=== PATIENT | female | born 1990 | race Caucasian/White ===

== ENCOUNTER 2019-03-13 23:08 | Observation (INO) | payer BC, OTHER ==
[2019-03-13 23:29] LABS: Appearance CLOUDY (CLEAR); Bacteria MODERATE /HPF (NEGATIVE); Bilirubin NEGATIVE (NEGATIVE); Blood MODERATE Ery/ul (0-5); Epithelial Cells FEW /HPF (FEW); Glucose NEGATIVE (NEGATIVE); Ketones SMALL (NEGATIVE); Leukocyte Esterase LARGE (NEGATIVE); Mucus MODERATE /HPF (NEGATIVE); Nitrite NEGATIVE (NEGATIVE); Non-Squamous Epithelial Cells RARE /HPF (FEW); Protein,Urine Dip 100 (Negative); RBC 51-100 /HPF (0-2); Specific Gravity 1.008 (1.005-1.025); Urobilinogen NEGATIVE mg/dL (0-1); WBC >100 /HPF (0-5)
[2019-03-13 23:37] LABS: Amphetamine,Urine NEGATIVE (NEGATIVE); Barbiturate,Urine NEGATIVE (NEGATIVE); Benzodiazepine,Urine NEGATIVE (NEGATIVE); Cocaine,Urine NEGATIVE (NEGATIVE); Methadone,Urine NEGATIVE (NEGATIVE); Opiate,Urine NEGATIVE (NEGATIVE); PCP,Urine NEGATIVE (NEGATIVE); THC,Urine NEGATIVE (NEGATIVE)
[2019-03-14 01:17] VITALS: BP 104/67; PULSE 86
== END 2019-03-14 00:45 | disposition home or self-care (01) ==
LOC: OB 23:08
PROVIDERS: ADMIT Family Medicine; ATTEND Family Medicine
DX: Z34.83 Encounter for supervision of other normal pregnancy, third trimester (principal)
CPT/HCPCS: 80307; 81001; 87077; 87086; 87186; G0378

== ENCOUNTER 2019-04-20 16:21 | Observation (INO) | payer BC, OTHER ==
[2019-04-20 16:46] LABS: Appearance SLIGHTLY CLOUDY (CLEAR); Bacteria RARE /HPF (NEGATIVE); Bilirubin NEGATIVE (NEGATIVE); Blood NEGATIVE Ery/ul (0-5); Epithelial Cells RARE /HPF (FEW); Glucose NEGATIVE (NEGATIVE); Ketones NEGATIVE (NEGATIVE); Leukocyte Esterase TRACE (NEGATIVE); Mucus SLIGHT /HPF (NEGATIVE); Nitrite NEGATIVE (NEGATIVE); Protein,Urine Dip 30 (Negative); Specific Gravity 1.028 (1.005-1.025); Urobilinogen 4 mg/dL (0-1)
[2019-04-20 17:02] VITALS: BP 125/76
[2019-04-20 17:53] VITALS: PULSE 103; O2SAT 99
== END 2019-04-20 18:20 | disposition home or self-care (01) ==
LOC: OB 16:21
PROVIDERS: ADMIT Family Medicine; ATTEND Family Medicine
DX: Z34.83 Encounter for supervision of other normal pregnancy, third trimester (principal)
CPT/HCPCS: 81001; G0378

== ENCOUNTER 2019-04-24 22:04 | Observation (INO) | payer BC, OTHER ==
[2019-04-24 22:45] VITALS: O2SAT 98
[2019-04-24 23:31] VITALS: BP 118/77; PULSE 81
== END 2019-04-24 23:25 | disposition home or self-care (01) ==
LOC: OB 22:04
PROVIDERS: ADMIT Family Medicine; ATTEND Family Medicine
DX: Z34.83 Encounter for supervision of other normal pregnancy, third trimester (principal)
CPT/HCPCS: 83986; G0378

== ENCOUNTER 2019-05-03 17:12 | Observation (INO) | payer BC, OTHER ==
[2019-05-03 19:05] VITALS: PULSE 85
[2019-05-03 20:09] LABS: Appearance CLEAR (CLEAR); Bacteria RARE /HPF (NEGATIVE); Bilirubin NEGATIVE (NEGATIVE); Blood NEGATIVE Ery/ul (0-5); Epithelial Cells RARE /HPF (FEW); Glucose NEGATIVE (NEGATIVE); Ketones NEGATIVE (NEGATIVE); Leukocyte Esterase TRACE (NEGATIVE); Nitrite NEGATIVE (NEGATIVE); Protein,Urine Dip NEGATIVE (Negative); Specific Gravity 1.011 (1.005-1.025); Urobilinogen NEGATIVE mg/dL (0-1)
[2019-05-03 20:17] VITALS: BP 121/84
== END 2019-05-03 20:55 | disposition home or self-care (01) ==
LOC: UNDOADMOB 17:12 → OB 17:12 → UNDODISOB 22:51
PROVIDERS: ADMIT Family Medicine; ATTEND Family Medicine
DX: Z34.83 Encounter for supervision of other normal pregnancy, third trimester (principal)
CPT/HCPCS: 81001; G0378

== ENCOUNTER 2019-05-19 03:20 | Inpatient (IN) | payer BC, OTHER ==
[2019-05-19] MEDS ORDERED: BRETHINE 1 MG/ML SQ PRN (04:05)
[2019-05-19] MEDS ORDERED: XYLOCAINE 1% HCL 20 ML MDV IJ PRN (04:24)
[2019-05-19] MEDS ORDERED: Zofran 4 MG/2 ML VIAL IV PRN (04:24)
[2019-05-19] MEDS ORDERED: TYLENOL EXTRA STRENGTH 500 MG PO PRN (04:24)
[2019-05-19 05:33] LABS: BASOPHIL % 0.4 % (0.0-0.4); Basophil (Absolute #) 0.03 (0-0.4); Eosinophil % 1.1 % (0.00-5.0); Eosinophil (Absolute #) 0.08 (0-0.5); Granulocyte Absolute (ANC) 5.05 (1.4-6.9); Granulocytes % 70.9 % (36.0-66.0); Hematocrit 34.4 % (35-47); Lymphocyte (Absolute #) 1.47 (1.0-4.6); Lymphocytes % 20.6 % (24.0-44.0); Mean Cell Volume 78.9 fl (78-100); Mean Corpuscular Hemoglobin 25.2 pg (26-32); Mean Platelet Volume 13.1 fl (6-9.5); Platelet Count 197 K/mm3 (150-450); Red Blood Count 4.36 M/mm3 (4.1-5.4); Red Cell Distribution Width 13.4 % (11.5-14.0); White Blood Count 7.1 K/mm3 (4.0-10.5)
[2019-05-19 05:34] LABS: Appearance CLEAR (CLEAR); Bilirubin NEGATIVE (NEGATIVE); Blood NEGATIVE Ery/ul (0-5); Epithelial Cells RARE /HPF (FEW); Glucose NEGATIVE (NEGATIVE); Ketones NEGATIVE (NEGATIVE); Leukocyte Esterase NEGATIVE (NEGATIVE); Mucus SLIGHT /HPF (NEGATIVE); Nitrite NEGATIVE (NEGATIVE); Protein,Urine Dip NEGATIVE (Negative); Specific Gravity 1.009 (1.005-1.025); Urobilinogen NEGATIVE mg/dL (0-1)
[2019-05-19] MEDS ORDERED: PITOCIN 30 UNITS/ LR 500 ML 500 ML IV SCH (06:00)
[2019-05-19] MEDS: Lactated Ringers 1,000 ML IV SCH ×3 (06:03→15:12)
[2019-05-19 06:50] LABS: Amphetamine,Urine NEGATIVE (NEGATIVE); Barbiturate,Urine NEGATIVE (NEGATIVE); Benzodiazepine,Urine NEGATIVE (NEGATIVE); Cocaine,Urine NEGATIVE (NEGATIVE); Methadone,Urine NEGATIVE (NEGATIVE); Opiate,Urine NEGATIVE (NEGATIVE); PCP,Urine NEGATIVE (NEGATIVE); THC,Urine NEGATIVE (NEGATIVE)
[2019-05-19] MEDS ORDERED: Ephedrine Sulfate 50 MG/ML IV PRN (11:59)
[2019-05-19] MEDS ORDERED: Lactated Ringers 1,000 ML IV ONE (11:59)
[2019-05-19] MEDS ORDERED: OB EPIDURAL NAROPIN/SUFENTANIL IN NACL EPIDURAL PRN (11:59)
[2019-05-19] MEDS ORDERED: STADOL 2 MG IV ONE (12:46)
[2019-05-19] MEDS ORDERED: STADOL 2 MG ONE (12:50)
[2019-05-19] MEDS ORDERED: XYLOCAINE 2%/Epi 1:200000 20ML VIAL MPF ONE (14:24)
[2019-05-19] MEDS ORDERED: Ambien 10 MG PO PRN (17:03)
[2019-05-19] MEDS ORDERED: Mylicon 80MG PO PRN (17:03)
[2019-05-19] MEDS ORDERED: LANSINOH 40 GM TOP PRN (17:03)
[2019-05-19] MEDS ORDERED: TUCKS TP PRN (17:03)
[2019-05-19] MEDS ORDERED: Restoril 15 MG PO PRN (17:03)
[2019-05-19] MEDS ORDERED: Dulcolax 10 MG SUPP PR PRN (17:03)
[2019-05-19] MEDS ORDERED: Dermoplast Spray TP PRN (17:03)
[2019-05-19] MEDS ORDERED: Anucort-HC SUPPOSITORY PR PRN (17:03)
[2019-05-19] MEDS ORDERED: CORTISONE 1% CREAM TP PRN (17:03)
[2019-05-19] MEDS ORDERED: XYLOCAINE 2%/Epi 1:200000 20ML VIAL MPF IJ SCH (20:00)
[2019-05-19] MEDS: SYNTHROID 75 MCG PO SCH (21:33)
[2019-05-19] MEDS: SYNTHROID 100 MCG PO SCH (21:33)
[2019-05-19] MEDS: Colace 100 MG PO SCH (21:39)
[2019-05-19] MEDS: THERAGRAN MULTIVITAMIN PO SCH (21:39)
[2019-05-20] MEDS: MOTRIN 400 MG PO PRN (00:04)
[2019-05-20] MEDS: NORCO 5/325 MG PO PRN ×6 (01:28→22:46)
[2019-05-20 06:18] LABS: BASOPHIL % 0.1 % (0.0-0.4); Basophil (Absolute #) 0.01 (0-0.4); Eosinophil % 1.4 % (0.00-5.0); Granulocyte Absolute (ANC) 5.34 (1.4-6.9); Granulocytes % 72.3 % (36.0-66.0); Hematocrit 32.9 % (35-47); Hemoglobin 10.4 gm/dl (12.0-16.0); Lymphocyte (Absolute #) 1.45 (1.0-4.6); Lymphocytes % 19.6 % (24.0-44.0); Mean Cell Volume 79.9 fl (78-100); Mean Corpuscular Hemoglobin 25.2 pg (26-32); Mean Corpuscular Hgb Concent. 31.6 g/dl (32-36); Mean Platelet Volume 13.7 fl (6-9.5); Monocyte (Absolute #) 0.49 (0.0-1.3); Monocytes % 6.6 % (0.0-12.0); Platelet Count 185 K/mm3 (150-450); Red Blood Count 4.12 M/mm3 (4.1-5.4); Red Cell Distribution Width 13.5 % (11.5-14.0); White Blood Count 7.4 K/mm3 (4.0-10.5)
[2019-05-20] MEDS ORDERED: NON-FORMULARY ITEM (Prenatal Vits W-Ca,Fe,Fa(<1mg) [Prenatal] 1 EACH) PO SCH (10:00)
[2019-05-20] MEDS ORDERED: LEVOTHYROXINE SODIUM 275 MCG PO SCH (10:00)
[2019-05-20] MEDS: THERAGRAN MULTIVITAMIN PO SCH (10:44)
[2019-05-20] MEDS: FERREX 150 PO SCH (10:45)
[2019-05-20] MEDS: Colace 100 MG PO SCH ×2 (10:45→20:57)
[2019-05-20] MEDS: SYNTHROID 75 MCG PO SCH (10:46)
[2019-05-20] MEDS: SYNTHROID 100 MCG PO SCH (10:46)
[2019-05-21] MEDS: NORCO 5/325 MG PO PRN ×2 (03:03→06:56)
[2019-05-21] MEDS: Colace 100 MG PO SCH (09:39)
[2019-05-21] MEDS: SYNTHROID 100 MCG PO SCH (09:39)
[2019-05-21] MEDS: SYNTHROID 75 MCG PO SCH (09:39)
[2019-05-21] MEDS: THERAGRAN MULTIVITAMIN PO SCH (09:39)
[2019-05-21] MEDS: FERREX 150 PO SCH (09:39)
[2019-05-21] MEDS: MOTRIN 400 MG PO PRN (13:05)
--- NOTE | 2019-05-21 13:26 | PCM.DS ---
Discharge Summary Date of Admission: 05/19/19 08:46 Date of Discharge: 05/21/2019 Admitting Physician: DEBORAH LUJAN Consults: Consults on Case 05/19/19 17:03 Notify Physician ROUTINE Primary Care Provider: DEBORAH LUJAN Allergies Allergies cefprozil [From Cefzil] Allergy (Severe, Verified 05/19/19 05:36) Swelling of Face coffee (Coffea arabica) [coffee] Allergy (Intermediate, Verified 05/19/19 05:37) [facility] Summary - Hospital Course Hospital Course: 28 yr old at 39 and 4/7 weeks ega that was admitted for elective induction of labor. Patient's PMHx includes hypothyroidism. Patient is s/p day two of viable male infant. Perineum intact. Loose nuchal cord x1 easily reduced. was bulb suctioned. Cord clamped then cut by FOB. Placenta delivered by active management. Cord blood collective and sent to lab. Uterus contracted down and fundus firm. EBL 100 ml. No complications noted. Patient has continued to do well during hospital course. She has had stable VS. She plans to bottle feed due to reported family hx of lactose intolerance. - Vitals & Intake/Output Vital Signs: Vital Signs Temperature 98.2 F 05/21/19 08:00 Pulse Rate 77 05/21/19 08:00 Respiratory Rate 18 05/21/19 08:00 Blood Pressure 109/70 05/21/19 08:00 O2 Sat by Pulse Oximetry Intake & Output: Intake & Output 05/19/19 05/20/19 05/21/19 05/22/19 11:59 11:59 11:59 11:59 Intake Total 1000 500 Output Total 350 5 Balance -350 995 500 Weight 104.326 kg - Lab Result Diagrams: 05/20/19 05:15 Discharge Exam General Appearance: no apparent distress Neurologic Exam: alert, oriented x 3, cooperative, normal mood/affect Eye Exam: eyes nml inspection Ears, Nose, Throat Exam: moist mucous membranes Neck Exam: normal inspection Respiratory Exam: normal breath sounds Cardiovascular Exam: regular rate/rhythm, normal heart sounds Gastrointestinal/Abdomen Exam: soft, normal bowel sounds Pelvic Exam: other (Uterine fundus below level of umbilicus appropriately tender ) Back Exam: normal inspection, other (small bruise at epidural site tender to palpation) Extremity Exam: pedal edema (+2) Skin Exam: normal color, warm, dry Final Diagnosis/Problem List - Final Discharge Diagnosis/Problem (1) Vaginal delivery Current Visit: No Status: Acute Assessment & Plan: Patient is doing well. VS stable. Plan for discharge today - Discharge Discharge Date: 05/21/19 Disposition: Home, Self-Care Condition: Stable Prescriptions: No Action Vits W-Ca,Fe,FA(<1Mg) [] 1 each PO DAILY Levothyroxine Sodium [Synthroid] 275 mcg PO DAILY Ergocalciferol (Vitamin D2) [Vitamin D2] 50,000 unit PO Q7D Follow up with: DEBORAH LUJAN MD [Primary Care Provider] - 1 Week
[2019-05-21 15:19] VITALS: BP 112/64; PULSE 81
== END 2019-05-21 16:30 | disposition home or self-care (01) | DRG 807 ==
LOC: OB 04:49 → OBSVTOIN 08:46
PROVIDERS: ADMIT Family Medicine; ATTEND Family Medicine
PROC: 10E0XZZ Delivery of Products of Conception, External Approach (ICD-10-PCS; principal; 2019-05-19)
DX: O80 Encounter for full-term uncomplicated delivery (principal); Z37.0 Single live birth; Z3A.39 39 weeks gestation of pregnancy
CPT/HCPCS: 36415; 80307; 81001; 85025; 87340; G0378; J0595; J2590; J2795; A9270-GY

== ENCOUNTER 2020-12-18 05:48 | Day surgery (SDC) | payer BC ==
[2020-12-18] MEDS ORDERED: Lactated Ringers 1,000 ML IV SCH (06:30)
[2020-12-18 07:14] LABS: Hematocrit 39.4 % (35-47); Hemoglobin 12.5 gm/dl (12.0-16.0)
[2020-12-18 07:49] LABS: ABO TYPING B; Antibody Screen NEGATIVE (NEGATIVE); RH TYPING POSITIVE
[2020-12-18] MEDS ORDERED: Zofran 4 MG/2 ML VIAL ONE (07:52)
[2020-12-18] MEDS ORDERED: Xylocaine-Mpf 2% 5 Ml Vial ONE (07:52)
[2020-12-18] MEDS ORDERED: Decadron 4 MG INJ ONE (07:52)
[2020-12-18] MEDS ORDERED: DIPRIVAN 200 MG/20 ML IV ONE (07:52)
[2020-12-18] MEDS ORDERED: SUBLIMAZE 100 MCG/2 ML ONE ×2 (07:53→08:43)
[2020-12-18] MEDS ORDERED: Lactated Ringers 1,000 ML IV ONE (08:10)
--- NOTE | 2020-12-18 08:51 | PCM.DCORD ---
- Discharge Disposition: Home, Self-Care Condition: Stable Prescriptions: New Hydrocodone/Acetaminophen [Hydrocodone-Acetamin 5-325 mg ] 1 tab PO Q6HPRN PRN 5 Days #20 tablet MDD 4 PRN Reason: Pain Cephalexin Mh 500 mg [Keflex 500 mg] 500 mg PO QID #28 capsule Continue Vits W-Ca,Fe,FA(<1Mg) [] 1 each PO DAILY Levothyroxine Sodium [Synthroid] 225 mcg PO DAILY Ergocalciferol (Vitamin D2) [Vitamin D2] 50,000 unit PO Q7D Follow up with: DEBORAH LUJAN MD [Primary Care Provider] - 1 Week
--- NOTE | 2020-12-18 09:13 | OP ---
SURGERY DATE/TIME: 12/18/2020 0755 PREOPERATIVE DIAGNOSIS: Missed . POSTOPERATIVE DIAGNOSIS: Missed . PROCEDURE: Suction dilatation and curettage. SURGEON: Graham Baker M.D. ANESTHESIA: General by Jorge A Pan CRNA. ESTIMATED BLOOD LOSS: Approximately 100 cc. SPECIMEN: Products of conception. DESCRIPTION OF PROCEDURE: After informed, written consent was obtained, the patient was taken to the operating room. She was prepped and draped in dorsal lithotomy position after she underwent general anesthesia. A weighted speculum was inserted into the vagina vault and the anterior free edge of the cervix was grasped with a single tooth tenaculum. Sound was used to gauge sound depth and then Hegar dilators were used to approximate dilation to receive a 7 Pashto suction catheter. A 7 Pashto suction catheter was used to evacuate the uterine cavity. There was munguia tissue consistent with products of conception visualized during suction with some bleeding consistent with completion of the procedure. Several passes were used in all four quadrants and felt as though the endometrial gritty texture was appreciable following removal of the products of conception in all four quadrants with minimal bleeding following evacuation of the uterine cavity. The patient remained stable throughout the procedure. The single tooth tenaculum was removed. Sponge stick was used to clean the vaginal vault. Minimal bleeding was present following the procedure. The weighted speculum was removed. The patient was transferred to the recovery in good condition. She was advised to follow up in the office in one week and I also advised the patient and her mother before and after the procedure to call if any fever, severe pelvic pain, heavy bleeding with clot passage or other complaints or concerns prior to the one week stefano.
[2020-12-18 09:28] VITALS: BP 126/71; PULSE 68; O2SAT 99
== END 2020-12-18 09:45 | disposition home or self-care (01) ==
LOC: SDC 05:48
PROVIDERS: ATTEND Family Medicine
DX: O02.1 Missed abortion (principal)
CPT/HCPCS: 36415; 85014; 85018; 86850; 86900; 86901; 88305; J1100; J2405; J2704; J3010

== ENCOUNTER 2023-02-24 00:44 | Observation (INO) | payer BC ==
[2023-02-24 01:27] LABS: Appearance Clear (Clear); Bacteria None Seen /HPF (None Seen); Bilirubin Negative (Negative); Blood Negative (Negative); Epithelial Cells None Seen /HPF (None Seen); Glucose, Urine Negative (Negative); Hyaline Casts NONE SEEN /LPF (0-2); Ketones Negative (Negative); Leukocyte Esterase Negative (Negative); Nitrite Negative (Negative); Ph 6.5 (4.6-8.0); Protein,Urine Dip Negative (Negative); RBC 0-2 /HPF (0-5); Specific Gravity <=1.005 (1.005-1.030); WBC 0-2 /HPF (0-5)
[2023-02-24 01:28] LABS: ADD URINE CULTURE? NO (NO)
[2023-02-24 01:38] LABS: Amphetamine,Urine NEGATIVE (NEGATIVE); Barbiturate,Urine NEGATIVE (NEGATIVE); Benzodiazepine,Urine NEGATIVE (NEGATIVE); Cocaine,Urine NEGATIVE (NEGATIVE); Methadone,Urine NEGATIVE (NEGATIVE); Opiate,Urine NEGATIVE (NEGATIVE); PCP,Urine NEGATIVE (NEGATIVE); THC,Urine NEGATIVE (NEGATIVE)
[2023-02-24 01:44] VITALS: O2SAT 98
[2023-02-24 02:10] VITALS: BP 107/61; PULSE 82
== END 2023-02-24 02:18 | disposition home or self-care (01) ==
LOC: OB 00:44
PROVIDERS: ADMIT Family Medicine; ATTEND Family Medicine
DX: Z34.83 Encounter for supervision of other normal pregnancy, third trimester (principal); Z3A.34 34 weeks gestation of pregnancy
CPT/HCPCS: 80307; 81001; G0378; G0379

== ENCOUNTER 2023-03-15 13:11 | Inpatient (IN) | payer BC ==
[2023-03-15 14:31] LABS: Appearance CLEAR (CLEAR); Bilirubin SMALL (NEGATIVE); Glucose NEGATIVE (NEGATIVE); Ketones NEGATIVE (NEGATIVE); Nitrite NEGATIVE (NEGATIVE); Ph 7.5 (5-6); Protein,Urine Dip 30 (Negative); RBC NEGATIVE Ery/ul (0-5); Urobilinogen 1 mg/dL (0-1)
[2023-03-15] MEDS ORDERED: Ephedrine Sulfate 50 MG/ML IV PRN (15:15)
[2023-03-15] MEDS ORDERED: Lactated Ringers 1,000 ML IV ONE (15:15)
[2023-03-15] MEDS ORDERED: FENTANYL 2 MCG-BUPIV 0.125%-NS 250 ML Epidur 250 ML EPIDURAL SCH (15:15)
[2023-03-15] MEDS ORDERED: BRETHINE 1 MG/ML SQ PRN (15:17)
[2023-03-15] MEDS ORDERED: Dermoplast Spray TP PRN (15:17)
[2023-03-15] MEDS ORDERED: TUCKS TP PRN (15:17)
[2023-03-15] MEDS ORDERED: XYLOCAINE 1% HCL 20 ML MDV IJ PRN (15:17)
[2023-03-15] MEDS ORDERED: STADOL 2 MG IV PRN (15:17)
[2023-03-15] MEDS ORDERED: LANSINOH 40 GM TOP PRN (15:17)
[2023-03-15] MEDS ORDERED: Zofran 4 MG/2 ML VIAL IV PRN (15:17)
[2023-03-15] MEDS ORDERED: Nubain 10 MG/ML IV PRN (15:17)
[2023-03-15 16:15] LABS: Hematocrit 30.2 % (35-47); Hemoglobin 9.2 g/dL (12.0-16.0); Mean Cell Volume 76.3 fL (78-100); Mean Corpuscular Hemoglobin 23.2 pg (26-32); Mean Corpuscular Hgb Concent. 30.5 g/dL (32-36); Mean Platelet Volume 11.3 fL (7.5-11.0); Platelet Count 179 x10^3/uL (150-450); Red Blood Count 3.96 x10^6/uL (4.1-5.4); Red Cell Distribution Width 14.4 % (11.5-14.0); White Blood Count 4.8 x10^3/uL (4.0-10.5)
[2023-03-15] MEDS: PITOCIN 30 UNITS/ LR 500 ML 30 UNITS/500 ML PLAST..BAG IV SCH (16:27)
[2023-03-15] MEDS: Lactated Ringers 1,000 ML IV SCH (16:28)
[2023-03-15 16:31] LABS: Amphetamine,Urine NEGATIVE (NEGATIVE); Barbiturate,Urine NEGATIVE (NEGATIVE); Benzodiazepine,Urine NEGATIVE (NEGATIVE); Cocaine,Urine NEGATIVE (NEGATIVE); Methadone,Urine NEGATIVE (NEGATIVE); Opiate,Urine NEGATIVE (NEGATIVE); PCP,Urine NEGATIVE (NEGATIVE); THC,Urine NEGATIVE (NEGATIVE)
[2023-03-15 17:00] LABS: ABO TYPING B; Antibody Screen NEGATIVE (NEGATIVE); RH TYPING POSITIVE
[2023-03-16] MEDS: Lactated Ringers 1,000 ML IV SCH ×2 (00:33→09:54)
[2023-03-16] MEDS: PITOCIN 30 UNITS/ LR 500 ML 30 UNITS/500 ML PLAST..BAG IV SCH (09:36)
[2023-03-16] MEDS: FERREX 150 PO SCH (11:09)
[2023-03-16] MEDS: MOTRIN 400 MG PO PRN (16:36)
[2023-03-16] MEDS ORDERED: Adacel Vial IM ONE (18:00)
[2023-03-16] MEDS ORDERED: Pepcid 20 MG PO ONE (20:30)
[2023-03-16] MEDS: TYLENOL EXTRA STRENGTH 500 MG PO PRN (22:33)
[2023-03-16] MEDS: Docusate Sodium 100 MG PO SCH (23:20)
[2023-03-17] MEDS: MOTRIN 400 MG PO PRN ×4 (01:08→21:40)
[2023-03-17] MEDS: TYLENOL EXTRA STRENGTH 500 MG PO PRN ×3 (04:02→20:00)
[2023-03-17 05:54] LABS: Hematocrit 26.6 % (35-47); Hemoglobin 8.3 g/dL (12.0-16.0); Mean Cell Volume 75.8 fL (78-100); Mean Corpuscular Hemoglobin 23.6 pg (26-32); Mean Corpuscular Hgb Concent. 31.2 g/dL (32-36); Mean Platelet Volume 11.5 fL (7.5-11.0); Platelet Count 191 x10^3/uL (150-450); Red Blood Count 3.51 x10^6/uL (4.1-5.4); Red Cell Distribution Width 14.7 % (11.5-14.0)
[2023-03-17] MEDS: Docusate Sodium 100 MG PO SCH ×2 (09:41→21:22)
[2023-03-17] MEDS: FERREX 150 PO SCH (09:42)
[2023-03-17] MEDS: SYNTHROID 125 MCG PO SCH (11:32)
[2023-03-17] MEDS: SYNTHROID 150 MCG PO SCH (11:32)
[2023-03-17] MEDS: THERAGRAN MULTIVITAMIN PO SCH (13:22)
[2023-03-18] MEDS: TYLENOL EXTRA STRENGTH 500 MG PO PRN (04:26)
[2023-03-18] MEDS: MOTRIN 400 MG PO PRN (04:27)
[2023-03-18 04:53] LABS: BASOPHIL % 0.7 % (0.0-0.4); Basophil (Absolute #) 0.04 x10^3/uL (0-0.4); Eosinophil % 1.8 % (0.00-5.0); Eosinophil (Absolute #) 0.11 x10^3/uL (0-0.5); Hematocrit 28.6 % (35-47); Hemoglobin 8.5 g/dL (12.0-16.0); IMMATURE GRAN # 0.09 x10^3u/L (0.00-0.03); IMMATURE GRAN % 1.5 % (0.00-0.4); Lymphocyte (Absolute #) 1.17 x10^3/uL (1.0-4.6); Lymphocytes % 19.5 % (24.0-44.0); Mean Cell Volume 77.5 fL (78-100); Mean Corpuscular Hgb Concent. 29.7 g/dL (32-36); Mean Platelet Volume 11.6 fL (7.5-11.0); Monocytes % 8.3 % (0.0-12.0); Neutrophil % 68.2 % (36.0-66.0); Platelet Count 223 x10^3/uL (150-450); Red Blood Count 3.69 x10^6/uL (4.1-5.4); Red Cell Distribution Width 14.6 % (11.5-14.0)
[2023-03-18 05:03] LABS: ALKALINE PHOSPHATASE 262 U/L (38-126); ANION GAP 10.4 MEQ/L (5-15); BLOOD UREA NITROGEN 6 mg/dL (7-17); CHLORIDE 105 mmol/L (98-107); Calcium 8.2 mg/dL (8.4-10.2); Carbon Dioxide 24 mmol/L (22-30); Creatinine 1 0.64 mg/dL (0.52-1.04); EST GLOMERULAR FILTRATION RATE > 60.0 ML/MIN; Glucose 96 mg/dL (74-106); Potassium 3.4 mmol/L (3.5-5.1); SGOT/AST 45 U/L (14-36); SGPT/ALT 62 U/L (0-35); SODIUM 136 mmol/L (137-145); Total Protein 6.2 g/dL (6.3-8.2)
[2023-03-18 05:20] VITALS: O2SAT 99
--- NOTE | 2023-03-18 08:42 | PCM.DS ---
Discharge Summary Date of Admission: 03/16/23 08:25 Admitting Physician: DEBORAH LUJAN Consults: Consults on Case 03/16/23 20:21 Navigation ONCE Primary Care Provider: DEBORAH LUJAN Allergies Allergies cefprozil [From Cefzil] Allergy (Severe, Verified 03/12/23 14:36) Swelling of Face Penicillins Allergy (Severe, Verified 03/12/23 14:36) Hives vomiting coffee (Coffea arabica) [coffee] Allergy (Intermediate, Verified 03/12/23 14:36) Hives Eggs Allergy (Severe, Uncoded 03/15/23 18:59) Vomiting Diarrhea Hospital Summary - Hospital Course Hospital Course: patient induced at 37wks for cholestasis, uneventful vaginal delivery with no complications. doing well , and well bonded with - Vitals & Intake/Output Vital Signs: Vital Signs Temperature 98.1 F 03/18/23 04:00 Pulse Rate 80 03/18/23 04:00 Respiratory Rate 18 03/18/23 04:00 Blood Pressure 118/69 03/18/23 04:00 O2 Sat by Pulse Oximetry 99 03/18/23 04:00 Intake & Output: Intake & Output 03/15/23 03/16/23 03/17/23 03/18/23 11:59 11:59 11:59 11:59 Intake Total 1275 250 200 Output Total 1150 1500 Balance 125 -1250 200 Weight 104.326 kg - Lab Result Diagrams: 03/18/23 04:15 03/18/23 04:15 Lab Results-Last 24 Hrs: Lab Results-Last 24 Hours 03/18/23 03/18/23 Range/Units 04:15 04:15 WBC 6.0 (4.0-10.5) x10^3/uL RBC 3.69 L (4.1-5.4) x10^6/uL Hgb 8.5 L (12.0-16.0) g/dL Hct 28.6 L (35-47) % MCV 77.5 L (78-100) fL MCH 23.0 L (26-32) pg MCHC 29.7 L (32-36) g/dL RDW 14.6 H (11.5-14.0) % Plt Count 223 (150-450) x10^3/uL MPV 11.6 H (7.5-11.0) fL Gran % 68.2 H (36.0-66.0) % Immature Gran % (Auto) 1.5 H (0.00-0.4) % Nucleat RBC Rel Count 0.0 (0.00-0.1) % Eos # (Auto) 0.11 (0-0.5) x10^3/uL Immature Gran # (Auto) 0.09 H (0.00-0.03) x10^3u/L Absolute Lymphs (auto) 1.17 (1.0-4.6) x10^3/uL Absolute Monos (auto) 0.50 (0.0-1.3) x10^3/uL Absolute Nucleated RBC 0.00 (0.00-0.01) x10^3u/L Lymphocytes % 19.5 L (24.0-44.0) % Monocytes % 8.3 (0.0-12.0) % Eosinophils % 1.8 (0.00-5.0) % Basophils % 0.7 (0.0-0.4) % Absolute Granulocytes 4.10 (1.4-6.9) x10^3/uL Basophils # 0.04 (0-0.4) x10^3/uL Sodium 136 L (137-145) mmol/L Potassium 3.4 L (3.5-5.1) mmol/L Chloride 105 (98-107) mmol/L Carbon Dioxide 24 (22-30) mmol/L Anion Gap 10.4 (5-15) MEQ/L BUN 6 L (7-17) mg/dL Creatinine 0.64 (0.52-1.04) mg/dL Estimated GFR > 60.0 ML/MIN Glucose 96 (74-106) mg/dL Calcium 8.2 L (8.4-10.2) mg/dL Total Bilirubin 0.50 (0.2-1.3) mg/dL AST 45 H (14-36) U/L ALT 62 H (0-35) U/L Alkaline Phosphatase 262 H (38-126) U/L Serum Total Protein 6.2 L (6.3-8.2) g/dL Albumin 3.0 L (3.5-5.0) g/dL Discharge Exam General Appearance: no apparent distress Neurologic Exam: alert, oriented x 3 Respiratory Exam: normal breath sounds, lungs clear, No respiratory distress Cardiovascular Exam: regular rate/rhythm, normal heart sounds Gastrointestinal/Abdomen Exam: soft, other (fundus firm), No tenderness, No mass Final Diagnosis/Problem List - Final Discharge Diagnosis/Problem (1) Vaginal delivery Current Visit: No Status: Acute (2) Cholestasis during in third trimester Current Visit: Yes Status: Acute Code(s): O26.613 - LIVER AND BILIARY TRACT DISORD IN , THIRD TRIMESTER; K83.1 - OBSTRUCTION OF BILE DUCT (3) (infant) Current Visit: Yes Status: Acute Code(s): Z78.9 - OTHER SPECIFIED HEALTH STATUS - Discharge Disposition: Home, Self-Care Condition: Stable Prescriptions: Continue Vits W-Ca,Fe,FA(<1Mg) [] 1 each PO DAILY Ergocalciferol (Vitamin D2) [Vitamin D2] 50,000 unit PO Q7D Ferrous Sulfate 325 mg [Feosol 325 mg] 325 mg PO DAILY Levothyroxine Sodium 100 Mcg [Synthroid 100 Mcg] 275 mcg PO QAM Follow up with: DEBORAH LUJAN MD [Primary Care Provider] -
[2023-03-18] MEDS ORDERED: NON-FORMULARY ITEM (Prenatal Vits W-Ca,Fe,Fa(<1mg) [Prenatal] 1 EACH Tablet) PO SCH (10:00)
[2023-03-18] MEDS ORDERED: SYNTHROID 100 MCG PO SCH (10:00)
[2023-03-18] MEDS: FERREX 150 PO SCH (10:33)
[2023-03-18] MEDS: Docusate Sodium 100 MG PO SCH (10:33)
[2023-03-18] MEDS: THERAGRAN MULTIVITAMIN PO SCH (10:33)
[2023-03-18] MEDS: SYNTHROID 125 MCG PO SCH (10:34)
[2023-03-18] MEDS: SYNTHROID 150 MCG PO SCH (10:34)
[2023-03-18 12:24] VITALS: BP 125/74; PULSE 78
== END 2023-03-18 12:55 | disposition home or self-care (01) | DRG 805 ==
LOC: CLIN-LAKE 13:11 → OB 14:42 → OBSVTOIN 03-16 08:25 → INTOOBSV 03-16 08:25
PROVIDERS: ADMIT Family Medicine; ATTEND Family Medicine
PROC: 10E0XZZ Delivery of Products of Conception, External Approach (ICD-10-PCS; principal; 2023-03-16)
DX: O26.613 Liver and biliary tract disorders in pregnancy, third trimester (principal); K83.1 Obstruction of bile duct; Z37.0 Single live birth; Z3A.37 37 weeks gestation of pregnancy; Z20.828 Contact with and (suspected) exposure to other viral communicable diseases
CPT/HCPCS: 36415; 80053; 80307; 81003; 85025; 85027; 86850; 86900; 86901; 90715; 96372; G0378; J2590; A9270-GY

== ENCOUNTER 2023-05-31 09:00 | Day surgery (SDC) | payer BC ==
--- NOTE | 2023-05-31 08:35 | HP ---
DATE OF SURGERY: 05/31/2023 HISTORY OF PRESENT ILLNESS: The patient is a 32-year-old with history of hypothyroidism, had mastitis and on erythromycin recently. She has four children, no longer desires fertility and desires tubal. PAST MEDICAL HISTORY: PAST SURGICAL HISTORY: LEEP. D&C. MEDICATIONS: Azithromycin for mastitis in the past. Vitamin D2, tablets, ferrous sulfate, levothyroxine for hypothyroidism. ALLERGIES: AMOXICILLIN. PENICILLIN. CEFZIL. EGGS. FAMILY HISTORY: Hypothyroidism, hypertension, diabetes. SOCIAL HISTORY: Denies smoking. No alcohol abuse. REVIEW OF SYSTEMS: Fourteen systems reviewed pertinent for mastitis and hypothyroidism. Otherwise no chest pain or palpitations. Other systems negative or noncontributory as above and per preadmission questionnaire. PHYSICAL EXAMINATION: Height 5'6". BMI 35. GENERAL: No acute distress. HEENT: Sclerae nonicteric. EOMI. Oral mucous membranes moist. NECK: No JVD. CHEST: Equal excursion, nonlabored breathing. CVS: Regular rate and rhythm. ABDOMEN: Soft. No peritoneal signs. EXTREMITIES: No significant edema. NEURO: Alert, oriented, moving extremities symmetrically. PSYCH: Appropriate mood and affect. SKIN: Dry. IMPRESSION: Undesired fertility. The patient desires laparoscopic bilateral tubal cauterization possible open. General risk bleeding or infection, risk of trocar injury or hernia, risk of bladder or blood vessel injury, risk of tubal failure rate, risk of bladder, blood vessel or ureter issues or injury but not limited to. She understands and agrees to the planned procedure as well as 4% risk of tubal failure possibly requiring other procedures. She understands she needs to use other form of contraceptive for six weeks postoperatively. Will proceed with laparoscopic bilateral tubal cauterization possible open.
[2023-05-31] MEDS ORDERED: Sensorcaine 0.25% 10 ML ONE (09:11)
[2023-05-31 09:30] LABS: HCG URINE TEST NEGATIVE (NEGATIVE)
[2023-05-31] MEDS ORDERED: Lactated Ringers 1,000 ML IV SCH (09:30)
[2023-05-31 09:40] VITALS: RESP 16
[2023-05-31] MEDS ORDERED: CLINDAMYCIN-D5W 900 MG/50 ML*** 900 MG/50 ML BAG IV ONE (09:42)
[2023-05-31] MEDS ORDERED: Lactated Ringers 1,000 ML IV ONE ×2 (09:42→11:53)
[2023-05-31] MEDS ORDERED: CLINDAMYCIN-D5W 900 MG/50 ML*** 900 MG/50 ML BAG IV SCH (10:00)
[2023-05-31] MEDS ORDERED: SUBLIMAZE 100 MCG/2 ML ONE (10:58)
[2023-05-31] MEDS ORDERED: Zofran 4 MG/2 ML VIAL ONE (10:58)
[2023-05-31] MEDS ORDERED: DIPRIVAN 200 MG/20 ML IV ONE (10:58)
[2023-05-31] MEDS ORDERED: Xylocaine-Mpf 2% 5 Ml Vial ONE (10:58)
[2023-05-31] MEDS ORDERED: BRIDION 200MG/2ML IV ONE (10:58)
[2023-05-31] MEDS ORDERED: Decadron 4 MG INJ ONE (10:58)
[2023-05-31] MEDS ORDERED: Zemuron 100 MG/10 ML ONE (10:58)
[2023-05-31] MEDS ORDERED: Versed 2 MG/2 ML Injection ONE (10:58)
[2023-05-31] MEDS ORDERED: DEXMEDETOMIDINE 80 MCG/20ML-NS IV ONE (10:58)
[2023-05-31] MEDS ORDERED: OFIRMEV 100 ML IV ONE (11:03)
[2023-05-31] MEDS ORDERED: Pre-Attached Lta Kit TP ONE (11:03)
[2023-05-31] MEDS ORDERED: TORAdol 30 mg Injection ONE (11:51)
[2023-05-31 13:27] VITALS: O2SAT 99
[2023-05-31 13:40] VITALS: BP 117/74; PULSE 55; TEMP 97.1
--- NOTE | 2023-06-01 09:42 | OP ---
SURGERY DATE/TIME: 05/31/2023 1140 PREOPERATIVE DIAGNOSIS: Undesired fertility, need for bilateral tubal cauterization. POSTOPERATIVE DIAGNOSIS: Undesired fertility, need for bilateral tubal cauterization. PROCEDURE: Laparoscopic bilateral tubal cauterization. SURGEON: Dr. Leif Lyman. ANESTHESIA: General. ESTIMATED BLOOD LOSS: Minimal. INDICATIONS: As noted above. Risks and benefits explained in detail and not limited to and consent obtained. DESCRIPTION OF PROCEDURE AND FINDINGS: The patient is taken to the operating room. General anesthesia was introduced. Abdomen prepped and draped in usual sterile fashion. After official time out and no disagreement with planned procedure, transverse incision made at supraumbilical area. Fascia grasped and pulled upwards. Veress needle inserted and tested with saline. Pneumoperitoneum accomplished. Insufflating opening pressure 0 to 15. A 5 mm bladeless port and camera were inserted without difficulty, 5 mm left lower quadrant, 5 mm right upper quadrant, 5 mm ports. The tube was elevated upwards with a grasper and original Kleppinger was nonfunctional requiring a secondary Kleppinger. Bipolar worked quite well. The tube carefully stretched out and was cauterized over 3.5 to 4 cm segment on either side elevating it well away from the retroperitoneum and side wall taking the energy down to 0 ohms and no resistance at this location. There was minimal ooze from the uterine fundus. Grasping was able to easily stretch the tube out for cauterization. Irrigation irrigated clear. The patient tolerated the procedure well. There was no family out in the waiting area. I will see her back in the office next week.
== END 2023-05-31 14:00 | disposition home or self-care (01) ==
LOC: SDC 09:00
PROVIDERS: ATTEND Surgery
DX: Z30.2 Encounter for sterilization (principal)
CPT/HCPCS: 81025; J1100; J1885; J2250; J2405; J2704; J3010